=== PATIENT | male | born 1970 | race Caucasian/White ===

== ENCOUNTER 2019-05-24 15:16 | Emergency (ER) | payer OTHER ==
[~2019-05-24] VITALS: Ht 190.5 cm; Wt 108.9 kg
[2019-05-24] MEDS ORDERED: HYDROcodone/APAP 5/325MG 1 TAB TABLET PO ONE (15:45)
--- NOTE | 2019-05-24 15:45 | PHYS DOC ---
Past Medical History Attending Signature I have participated in the care of this patient and I have reviewed and agree with all pertinent clinical information above including history, exam, and recommendations. (ORLANDO PAGE MD) Adult General Chief Complaint Chief Complaint: FINGER INJURY HPI HPI Patient is a 48 year old male that presents to the ER stating that he had a 10 pound hammer smashed his finger between the hammer and lag bolt. He states that this happened at 1426. He states he is having right second digit pain at the distal end of the digit. Rates his pain as 8 out of 10 in severity and throbbing. (JIMMIE HANSEN APRN) Review of Systems Review of Systems Constitutional: Denies fever or chills [] Eyes: Denies change in visual acuity, redness, or eye pain [] HENT: Denies nasal congestion or sore throat [] Respiratory: Denies cough or shortness of breath [] Cardiovascular: No additional information not addressed in HPI [] GI: Denies abdominal pain, nausea, vomiting, bloody stools or diarrhea [] : Denies dysuria or hematuria [] Musculoskeletal: Reports pain to the distal tip of R 2nd digit. Integument: Denies rash or skin lesions [] Neurologic: Denies headache, focal weakness or sensory changes [] Endocrine: Denies polyuria or polydipsia [] Complete systems were reviewed and found to be within normal limits, except as documented in this note. (JIMMIE HANSEN APRN) Current Medications Current Medications Current Medications Medications (Trade) Dose Ordered Sig/Jennifer Start Time Stop Time Status Last Admin Dose Admin Acetaminophen/ Hydrocodone Bitart (Lortab 5/325) 1 tab 1X ONCE 05/24/19 15:45 05/24/19 15:56 DC 05/24/19 15:45 1 TAB Diphtheria/ Tetanus/Acell Pertussis (Boostrix) 0.5 ml ONCE ONCE 05/24/19 16:30 05/24/19 16:31 DC 05/24/19 16:29 0.5 ML (ORLANDO PAGE MD) Allergies Allergies Allergies Coded Allergies Type Severity Reaction Last Updated Verified No Known Drug Allergies 05/24/19 No (ORLANDO PAGE MD) Physical Exam Physical Exam Constitutional: Well developed, well nourished, no acute distress, non-toxic appearance. [] HENT: Normocephalic, atraumatic, bilateral external ears normal, oropharynx moist, no oral exudates, nose normal. [] Eyes: PERRLA, EOMI, conjunctiva normal, no discharge. [] Neck: Normal range of motion, no tenderness, supple, no stridor. [] Cardiovascular:Heart rate regular rhythm, no murmur [] Lungs & Thorax: Bilateral breath sounds clear to auscultation [] Abdomen: Bowel sounds normal, soft, no tenderness, no masses, no pulsatile masses. [] Skin: Warm, dry, no erythema, no rash. [] Back: No tenderness, no CVA tenderness. [] Extremities: Pain and tenderness to distal R 2nd digit. Neurovascular intact Neurologic: Alert and oriented X 3, normal motor function, normal sensory function, no focal deficits noted. [] Psychologic: Affect normal, judgement normal, mood normal. [] (JIMMIE HANSEN APRN) Current Patient Data Vital Signs Vital Signs Date Time Temp Pulse Resp B/P (MAP) Pulse Ox O2 Delivery O2 Flow Rate FiO2 05/24/19 15:47 98.6 67 16 162/96 (118) 97 Room Air 98.6 (ORLANDO PAGE MD) EKG EKG [] (JIMMIE HANSEN APRN) Radiology/Procedures Radiology/Procedures [][facility] [address] [place] [address] IMAGING REPORT Signed PATIENT: RIKI CARTER ACCOUNT: [id number] : 1970 LOCATION: ER AGE: 48 SEX: M EXAM STATUS: PRE ER ORD. PHYSICIAN: JIMMIE HANSEN APRN REASON: trauma to R 2nd digit PROCEDURE: HAND RIGHT 3V HAND RIGHT 3V History: Trauma to second digit. Technique: 3 views right hand. Comparison: None. Findings: Nondisplaced right distal tuft fracture. Overlying soft tissue swelling. No additional fracture. Normal alignment. Impression: 1. Nondisplaced distal second tuft fracture. Electronically signed by: Real Franco DO (05/24/2019 3:52 PM) [facility] DICTATED and SIGNED BY: REAL FRANCO DO DATE: 05/24/19 1552 (JIMMIE HANSEN APRN) Course & Med Decision Making Course & Med Decision Making Pertinent Labs and Imaging studies reviewed. (See chart for details) Will get X-ray and give pain medication. X-ray shows nondisplaced Turf fractures. Will have placed in mallet splint and have follow up in Ortho clinic. (JIMMIE HANSEN APRN) Dragon Disclaimer Dragon Disclaimer This electronic medical record was generated, in whole or in part, using a voice recognition dictation system. (JIMMIE HANSEN APRN) Departure Departure Impression: Primary Impression: Closed fracture of tuft of distal phalanx of finger Disposition: HOME, SELF-CARE Condition: STABLE Referrals: IJEOMA NUÑEZ MD Patient Instructions: Finger Fracture Additional Instructions: Thank you for visiting [facility]. We appreciate you trusting us with your care. If any additional problems come up don't hesitate to return to visit us. Please follow up with your primary care provider so they can plan additional care if needed and know about the problem that you had. If symptoms worsen come back to the Emergency Department. Any concerning symptoms that start such as chest pain, shortness of air, weakness or numbness on one side of the body, running high fevers or any other concerning symptoms return to the ER. Please follow up with Ortho in the next week. Please fill your medications at any pharmacy and follow the prescription instructions. Scripts Ondansetron (ONDANSETRON ODT) 4 Mg Tab.rapdis 1 TAB PO PRN Q6-8HRS PRN for NAUSEA, #16 TAB Prov: JIMMIE HANSEN APRN 05/24/19 Hydrocodone/Apap 5-325 (NORCO 5-325 TABLET) 1 Each Tablet 1 TAB PO PRN Q6HRS PRN for PAIN for 3 Days, #12 TAB 0 Refills Prov: JIMMIE HANSEN APRN 05/24/19 JIMMIE HANSEN APRN May 24, 2019 15:45 ORLANDO PAGE MD May 25, 2019 09:36
[2019-05-24 15:47] VITALS: BP 162/96
--- NOTE | 2019-05-24 15:55 | RAD ---
HAND RIGHT 3V History: Trauma to second digit. Technique: 3 views right hand. Comparison: None. Findings: Nondisplaced right distal tuft fracture. Overlying soft tissue swelling. No additional fracture. Normal alignment. Impression: 1. Nondisplaced distal second tuft fracture. Electronically signed by: Real Franco DO (05/24/2019 3:52 PM) [facility]
[2019-05-24] MEDS ORDERED: HYDR-3164 PO (16:11)
[2019-05-24] MEDS ORDERED: ONDA4TAB12 PO (16:11)
[2019-05-24] MEDS ORDERED: DIPHTH,PERTUSS(ACELL),TET TOX 0.5 ML DISP.SYRIN. VAX IM ONE (16:30)
== END 2019-05-24 16:31 | disposition home or self-care (01) ==
LOC: ER 15:16 → EDSEX 15:16 → ER 16:31
DX: S62.660A Nondisplaced fracture of distal phalanx of right index finger, initial encounter for closed fracture (principal); W23.0XXA Caught, crushed, jammed, or pinched between moving objects, initial encounter; Y93.89 Activity, other specified; Y92.89 Other specified places as the place of occurrence of the external cause; Y99.8 Other external cause status
CPT/HCPCS: 29130; 73130; 90471; 90715; 99284